=== PATIENT | male | born 1975 | race Caucasian/White ===

== ENCOUNTER 2019-01-31 17:37 | Emergency (ER) | payer SELFPAY ==
[~2019-01-31] VITALS: Ht 170.2 cm; Wt 98.0 kg
[2019-01-31 17:41] VITALS: Ht 170.2 cm; Wt 98.0 kg
[2019-01-31] MEDS ORDERED: ASPIRIN 325 MG TAB PO STA (18:28)
--- NOTE | 2019-01-31 18:28 | ERD ---
ER Documentation Chief Complaint Chief Complaint chest pressure today after getting in an argument HPI 43-year-old male with no significant prior medical history presents the ED for evaluation of chest pain. At approximately 2 PM patient got very upset after an argument at work and then experienced mild, nonradiating substernal chest pressure without any accompanying shortness of breath, nausea, vomiting or diaphoresis. Symptoms lasted for approximately half an hour and he went to a local clinic where an EKG was performed and reported as abnormal subsequently referred to the ED for further evaluation. He currently admits to still feeling a little nervous but no further chest pain. Denies abdominal pain or back pain. No shortness of breath or cough. No leg pain or swelling. No relieving or exacerbating factors. No fevers or chills. ROS All systems reviewed and are negative except as per history of present illness. Medications Home Meds Reported Medications Cyanocobalamin* (Vitamin B12*) 500 Mcg Tab, 500 MCG PO DAILY, TAB 01/31/19 Ascorbic Acid* (Vitamin C*) 500 Mg Capsule.sa, 500 MG PO DAILY, CAP 01/31/19 Allergies Allergies: Coded Allergies: No Known Allergy (Unverified , 01/31/19) PMhx/Soc History of Surgery: No Anesthesia Reaction: No Hx Neurological Disorder: No Hx Respiratory Disorders: No Hx Cardiac Disorders: No Hx Psychiatric Problems: No Hx Miscellaneous Medical Probl: No Hx Alcohol Use: Yes (Social) Hx Substance Use: No Hx Tobacco Use: No FmHx Coronary artery disease, hypertension or stroke Physical Exam Vitals Vital Signs Date Temp Pulse Resp B/P (MAP) Pulse Ox O2 O2 Flow FiO2 Time Delivery Rate 01/31/19 98.5 77 14 103/59 98 Room Air 23:25 (74) 01/31/19 85 20 111/59 97 Room Air 22:30 (76) 01/31/19 107 22 152/77 98 Room Air 20:30 (102) 01/31/19 97.9 93 20 133/96 96 Room Air 18:20 (108) 01/31/19 99.2 111 18 149/96 98 17:41 (113) Physical Exam Const: Mild distress. Anxious. Head: Atraumatic Eyes: Normal Conjunctiva. Pupils equal reactive light, extraocular movements are intact. ENT: Normal External Ears, Nose and Mouth. Neck: Full range of motion. No JVD. Carotids 2+ bilateral without bruits. No meningismus. Resp: Breath sounds are equal and clear to auscultation bilaterally. No rales rhonchi or wheezes Cardio: Regular rate and rhythm, no murmurs, gallops or rubs. Chest Wall: No tenderness, ecchymosis or bruising Abd: Soft, non tender, non distended. Normal bowel sounds. No rebound or guarding. No masses or abnormal pulsations. Skin: No petechiae or rashes Back: No midline or flank tenderness Ext: No cyanosis, or edema. No calf swelling or tenderness. Neur: Awake and alert. No focal deficit. Cranial nerves II through XII are grossly intact. Psych: Anxious but not depressed. Cooperative. Result Diagram: 01/31/19182701/31/191827 Results 24 hrs Laboratory Tests Test 01/31/19 18:28 01/31/19 21:10 White Blood Count 8.8 10^3/ul Red Blood Count 5.01 10^6/ul Hemoglobin 15.1 g/dl Hematocrit 44.7 % Mean Corpuscular Volume 89.2 fl Mean Corpuscular Hemoglobin 30.1 pg Mean Corpuscular Hemoglobin Concent 33.8 g/dl Red Cell Distribution Width 12.9 % Platelet Count 201 10^3/UL Mean Platelet Volume 9.5 fl Immature Granulocytes % 0.500 % Neutrophils % 77.9 % Lymphocytes % 13.8 % Monocytes % 7.0 % Eosinophils % 0.2 % Basophils % 0.6 % Nucleated Red Blood Cells % 0.0 /100WBC Immature Granulocytes # 0.040 10^3/ul Neutrophils # 6.8 10^3/ul Lymphocytes # 1.2 10^3/ul Monocytes # 0.6 10^3/ul Eosinophils # 0.0 10^3/ul Basophils # 0.1 10^3/ul Nucleated Red Blood Cells # 0.0 10^3/ul D-Dimer 303.10 ng/ml D-Dimer Comment Sodium Level 141 mmol/L Potassium Level 4.6 mmol/L Chloride Level 104 mmol/L Carbon Dioxide Level 29 mmol/L Anion Gap 8 Blood Urea Nitrogen 15 mg/dl Creatinine 0.96 mg/dl Est Glomerular Filtrat Rate mL/min > 60 mL/min Glucose Level 119 mg/dl Calcium Level 9.1 mg/dl Troponin I < 0.012 ng/ml < 0.012 ng/ml Current Medications Medications Dose Sig/Mark Start Time Status Last (Trade) Ordered Route PRN Stop Time Admin Dose Reason Admin Aspirin 325 mg ONCE STAT 01/31/19 DC 01/31/19 (Aspirin) PO 18:28 18:42 01/31/19 18:30 Procedures/MDM DOCUMENTS REVIEWED: ED nurse, clinic EKG performed at 17: 03. Sinus rhythm. Ventricular rate 97. Normal HI. QRS prolonged at 102 ms with right bundle branch block. Q waves in lead III. T wave inversions in 3 [address]VF. No acute ST segment elevation. No ectopy. EKG: Time: 1742. Sinus tachycardia. Ventricular rate 109. No HI QRS. Right bundle branch block. Q waves in lead III. Nonspecific T wave changes. No acute ST segment elevation or depression. No ectopy. My Interpretation EKG: Time: 2111. Sinus rhythm. Ventricular rate 97. No HI QRS. Right bundle branch block. Q waves in lead III. Nonspecific T wave changes. No acute ST segment elevation or depression. No ectopy. My Interpretation IMAGING: Chest AP portable. Cardiac silhouette is normal. The costophrenic angles are clear. No effusions or infiltrates. No abnormalities of the bony thorax. My interpretation. REEXAMINATION/REEVALUATION: Time: 19:30. Doing well. No chest pain. Sinus rhythm without ectopy. Time: 21:00. Vital signs as documented. Asymptomatic. Time: 22:00. Asymptomatic. No chest pain. Vital signs as documented. OBSERVATION NOTE: At 18:30 the patient was entered into observation status to establish the need for admission. During this time the patient was treated for chest pain. Additionally, extensive evaluation including, CBC, chemistry, EKG x2, troponin x2 and chest x-ray were preformed with results interpreted as above. Vitals signs were monitored and multiple, frequent reexaminations were performed. At 22:00 the patient was reexamined; VSS, no chest pain. Sinus rhythm without ectopy. Based on these findings the patient was discharged from observation as it was determined that the patient was improved and met criteria for discharge. No family history of hypertension or coronary artery disease. TOTAL OBSERVATION TIME: 3.5 Hours. MEDICAL DECISION MAKIN-year-old male with no significant prior medical history presents the ED for evaluation of chest pain. Exam and work up not consistent w/ ischemia, arrhythmia, PE or dissection. The patient presents with chest pain and I considered pulmonary embolism, aortic dissection, pneumothorax among other diagnoses. Symptoms likely related to anxiety although other etiologies including gastritis/GERD is not ruled out. Evaluation for acute coronary syndrome was performed. The HEART score was utilized for risk stratification and found to be = 0. Repeat EKG and troponin @ 3 hours were unchanged. Based on this evaluation the patients risk of major adverse cardiac events is <1%. Shared decision making occurred with patient and the decision has been made to discharge the patient for outpatient evaluation and functional study within 72 hours. Patient's thoracic symptoms have stabilized while in the department. Stable for discharge with precautionary instructions and outpatient follow-up as counseled. Counseled patient regarding diagnostic workup, diagnosis and need for followup. Understands to return to ED if symptoms recur, worsen or any other concerns. Departure Diagnosis: Primary Impression: Chest pain Chest pain type: unspecified Qualified Codes: R07.9 - Chest pain, unspecified Additional Impression: Anxiety as acute reaction to exceptional stress Condition: Stable SHERIDAN SAEED MD Jan 31, 2019 18:28
[2019-01-31] MEDS ORDERED: ASCO500C7 PO (21:54)
[2019-01-31] MEDS ORDERED: CYAN500T46 PO (21:54)
[2019-01-31 23:25] VITALS: BP 103/59; PULSE 77; RESP 14
== END 2019-01-31 23:25 | disposition home or self-care (01) ==
LOC: E/R 17:37
DX: R07.89 Other chest pain (principal)
CPT/HCPCS: 36415; 71045; 80048; 84484; 85025; 85378; 93005

== ENCOUNTER → 2019-02-10 | Emergency (ER) | payer SELFPAY ==
[~2019-02-10] VITALS: Ht 175.3 cm; Wt 98.8 kg
[~2019-02-10] MED LIST: ASCO500C7 PO; CYAN500T46 PO; LORA1TAB PO; LORAZEPAM 1 MG TAB PO ONE
[2019-02-10 10:08] VITALS: BP 140/82; PULSE 88; RESP 18; Ht 175.3 cm; Wt 98.8 kg
--- NOTE | 2019-02-10 12:14 | ERD ---
ER Documentation Chief Complaint Chief Complaint feels his bp is high , no h/o htn HPI This patient is a 43-year-old male with no significant past medical history stating that he feels like his blood pressure is high. He does not take blood pressure medication nor does he have a history of hypertension. He states he feels occasional dizziness and gets paresthesias around his lips and upper and lower extremities. At this time he denies any chest pain palpitations or shortness of breath. Denies any alcohol smoking or drug use. He has no cardiac past medical history. ROS All systems reviewed and are negative except as per history of present illness. Medications Home Meds Active Scripts Lorazepam* (Lorazepam*) 1 Mg Tablet, 1 MG PO BID PRN for ANXIETY, #15 TAB Prov:ANGELINA BOWEN PA-C 02/10/19 Reported Medications Cyanocobalamin* (Vitamin B12*) 500 Mcg Tab, 500 MCG PO DAILY, TAB 01/31/19 Ascorbic Acid* (Vitamin C*) 500 Mg Capsule.sa, 500 MG PO DAILY, CAP 01/31/19 Allergies Allergies: Coded Allergies: No Known Allergy (Unverified , 01/31/19) PMhx/Soc Medical and Surgical Hx: pt denies Medical Hx, pt denies Surgical Hx History of Surgery: No Anesthesia Reaction: No Hx Neurological Disorder: No Hx Respiratory Disorders: No Hx Cardiac Disorders: No Hx Psychiatric Problems: No Hx Miscellaneous Medical Probl: No Hx Alcohol Use: Yes (Social) Hx Substance Use: No Hx Tobacco Use: No Smoking Status: Never smoker FmHx Family History: No diabetes Physical Exam Vitals Vital Signs Date Temp Pulse Resp B/P (MAP) Pulse Ox O2 O2 Flow FiO2 Time Delivery Rate 02/10/19 98.1 88 18 140/82 99 10:08 (101) Physical Exam Const: No acute distress Head: Atraumatic Eyes: Normal Conjunctiva ENT: Normal External Ears, Nose and Mouth. Neck: Full range of motion. No meningismus. Resp: Clear to auscultation bilaterally Cardio: Regular rate and rhythm, no murmurs Abd: Soft, non tender, non distended. Normal bowel sounds Skin: No petechiae or rashes Back: No midline or flank tenderness Ext: No cyanosis, or edema Neur: Awake and alert Psych: Normal Mood and Affect Result Diagram: 02/10/19 1111 02/10/19 1111 Results 24 hrs Laboratory Tests Test 02/10/19 11:11 White Blood Count 7.9 10^3/ul Red Blood Count 5.05 10^6/ul Hemoglobin 15.1 g/dl Hematocrit 44.3 % Mean Corpuscular Volume 87.7 fl Mean Corpuscular Hemoglobin 29.9 pg Mean Corpuscular Hemoglobin Concent 34.1 g/dl Red Cell Distribution Width 12.7 % Platelet Count 184 10^3/UL Mean Platelet Volume 9.3 fl Immature Granulocytes % 0.300 % Neutrophils % 82.4 % Lymphocytes % 11.7 % Monocytes % 4.8 % Eosinophils % 0.5 % Basophils % 0.3 % Nucleated Red Blood Cells % 0.0 /100WBC Immature Granulocytes # 0.020 10^3/ul Neutrophils # 6.5 10^3/ul Lymphocytes # 0.9 10^3/ul Monocytes # 0.4 10^3/ul Eosinophils # 0.0 10^3/ul Basophils # 0.0 10^3/ul Nucleated Red Blood Cells # 0.0 10^3/ul Sodium Level 141 mmol/L Potassium Level 4.2 mmol/L Chloride Level 102 mmol/L Carbon Dioxide Level 27 mmol/L Anion Gap 12 Blood Urea Nitrogen 13 mg/dl Creatinine 0.84 mg/dl Est Glomerular Filtrat Rate mL/min > 60 mL/min Glucose Level 121 mg/dl Calcium Level 8.6 mg/dl Total Bilirubin 0.6 mg/dl Direct Bilirubin 0.00 mg/dl Indirect Bilirubin 0.6 mg/dl Aspartate Amino Transf (AST/SGOT) 33 IU/L Alanine Aminotransferase (ALT/SGPT) 26 IU/L Alkaline Phosphatase 73 IU/L Troponin I < 0.012 ng/ml Total Protein 8.3 g/dl Albumin 4.4 g/dl Globulin 3.90 g/dl Albumin/Globulin Ratio 1.12 Current Medications Medications Dose Sig/Mark Start Time Status Last (Trade) Ordered Route PRN Stop Time Admin Dose Reason Admin Lorazepam 1 mg ONCE ONCE 02/10/19 DC 02/10/19 (Ativan) PO 11:00 02/10/19 11:08 11:01 Procedures/MDM Patient is here with vague complaints of intermittent dizziness and feeling paresthesias in his lips and fingertips and feet. He does appear very anxious in examination room and he and his that is with him suspect that his symptoms are anxiety related. He has no cardiac past medical history. His EKG was normal with no evidence of ST elevation or acute ischemic changes. Blood work including troponin is negative. Patient was given Ativan here and felt much better. Patient counseled regarding my diagnostic impression and care plan. Prior to discharge all questions answered. Pt agrees with treatment plan and understands strict return precautions. Pt is instructed to follow up with primary care provider within 24-48 hours. Precautionary instructions provided including instructions to return to the ER if not improving or for any worsening or changing symptoms or concerns. Departure Diagnosis: Primary Impression: Anxiety Condition: Stable Patient Instructions: Anxiety Reaction Additional Instructions: Llame al doctor MAANA y salomon malachi JAVI PARA DENTRO DE 1-2 MATSO.Dgale a la secretaria que nosotros le instruimos hacer esta javi.Avise o llame si [place] condicin se empeora antes de la javi. Regresa aqui si peor o no mejor. ANGELINA BOWEN PA-C Feb 10, 2019 12:14
== END | disposition home or self-care (01) ==
LOC: FTE 10:04
DX: F41.9 Anxiety disorder, unspecified (principal)
CPT/HCPCS: 80053; 84484; 85025; 93005